=== PATIENT | female | born 1960 | race Caucasian/White ===

== ENCOUNTER 2022-01-20 22:25 | Inpatient (IN) | payer OTHER, MEDICARE ==
[2022-01-20 23:10] LABS: #Basophils 0.1 thou/uL (0.0-0.2); #Eosinphils 0.2 thou/uL (0.0-0.7); #Lymphocytes 3.6 thou/uL (1.20-3.40); #Neutrophils 5.8 thou/uL (1.40-6.50); %Basophils 0.7 % (0.0-1.0); %Eosinophils 2.1 % (0.0-10.0); %Lymphocytes 33.8 % (21.0-51.0); %Monocytes 9.4 % (0.0-10.0); %Neutrophils 54.1 % (42.0-75.0); Mean Corpuscular HGB CONC 34.3 g/dL (32.0-36.0); Mean Corpuscular Hemoglobin 29.4 pg (27.0-31.0); Mean Corpuscular Volume 85.7 fL (78.0-98.0); Mean Platelet Volume 7.5 fL (7.4-10.4); Platelet Count 318 thou/uL (130-400); RBC Distribution Width 14.5 % (11.5-14.5); Red Blood Cell (RBC) Count 3.74 mill/uL (4.20-5.40); White Blood Cell (WBC) Count 10.8 thou/uL (4.8-10.8)
[2022-01-20 23:17] LABS: INR-International Normal Ratio 1.1; Prothrombin Time 14.5 sec (12.0-14.7)
[2022-01-20 23:19] LABS: PTT 34.1 sec (22.9-36.1)
[2022-01-20 23:30] LABS: ALT (SGPT) 7 U/L (8-55); AST (SGOT) 25 U/L (5-34); Alkaline Phosphatase 158 U/L (40-110); Anion Gap 14 mmol/L (10-20); BUN (Urea Nitrogen) 15 mg/dL (9.8-20.1); Bilirubin, Total 0.2 mg/dL (0.2-1.2); Calc. Creatinine Clearance 0 mL/min (70-130); Calcium 9.1 mg/dL (7.8-10.44); Carbon Dioxide 25 mmol/L (23-31); Chloride 106 mmol/L (98-107); Globulin 3.6 g/dL (2.4-3.5); Glucose 126 mg/dL (80-115); Potassium 3.8 mmol/L (3.5-5.1); Protein, Total 7.6 g/dL (5.8-8.1); Sodium 141 mmol/L (136-145)
[2022-01-20] MEDS ORDERED: Morphine 4 MG/ML VIAL ONE (23:38)
[2022-01-20] MEDS ORDERED: Morphine 2 MG/ML VIAL ONE (23:40)
[2022-01-21] MEDS ORDERED: Morphine 2 MG/ML VIAL ONE (00:38)
[2022-01-21] MEDS ORDERED: Ondansetron PF 4 MG/2 ML Vial IVP PRN (01:54)
[2022-01-21] MEDS ORDERED: Promethazine HCl 25 MG/ML VIAL IM PRN (01:54)
[2022-01-21] MEDS ORDERED: Sodium Chloride 0.9% 1,000 ML IV SCH (02:00)
[2022-01-21] MEDS ORDERED: Morphine 4 MG/ML VIAL ONE (02:02)
[2022-01-21] MEDS ORDERED: traMADol HCl 50 MG TAB PO PRN ×2 (02:02→03:56)
[2022-01-21] MEDS ORDERED: hydrALAZINE 20 MG/ML VIAL SLOW IVP PRN (02:09)
[2022-01-21] MEDS ORDERED: Ketorolac Tromethamine 30 MG/ML VIAL IVP SCH (02:15)
[2022-01-21] MEDS: Ketorolac Tromethamine 30 MG/ML VIAL IVP SCH ×4 (04:02→23:47)
[2022-01-21] MEDS: Morphine 2 MG/ML VIAL SLOW IVP PRN ×2 (04:03→20:21)
[2022-01-21] MEDS: Acetaminophen 500 MG TAB PO SCH ×4 (04:07→23:47)
[2022-01-21 04:42] VITALS: BMI 29.9
[2022-01-21] MEDS: traMADol HCl 50 MG TAB PO SCH ×4 (06:02→23:47)
[2022-01-21] MEDS ORDERED: CEFAZOLIN 2 GM in Sodium Chloride 0.9% 100 ML IVPB SCH (07:30)
[2022-01-21] MEDS: clonazePAM 0.5 MG TAB PO SCH (08:20)
[2022-01-21] MEDS: Divalproex Sodium 250 MG (DR) TAB PO SCH ×2 (08:20→20:20)
[2022-01-21] MEDS ORDERED: Metoprolol Tartrate 25 MG TAB PO SCH (09:00)
[2022-01-21] MEDS ORDERED: fentaNYL Citrate/PF 100 MCG/2 ML SYRINGE ONE (09:35)
[2022-01-21] MEDS ORDERED: ePHEDrine 50 MG/ML VIAL ONE (09:50)
[2022-01-21] MEDS ORDERED: Ondansetron PF 4 MG/2 ML Vial ONE (09:50)
[2022-01-21] MEDS ORDERED: Dexamethasone 20 MG/5 ML VIAL ONE (09:50)
[2022-01-21] MEDS ORDERED: PROPOFOL 200 MG/20 ML VIAL ONE (09:50)
[2022-01-21] MEDS ORDERED: Rocuronium Bromide 10 MG/ML (10ML VIAL) ONE (09:50)
[2022-01-21] MEDS ORDERED: Lidocaine 1% PF 5 ML VIAL ONE (09:50)
[2022-01-21] MEDS ORDERED: Glycopyrrolate 0.2 MG/ML 5 ML SYRINGE ONE (09:50)
[2022-01-21] MEDS: Senokot S 8.6-50 MG TAB PO SCH ×2 (09:51→20:20)
[2022-01-21] MEDS: Famotidine/PF 20 mg/2ml Vial SLOW IVP SCH ×2 (09:51→20:20)
[2022-01-21] MEDS: Polyethylene Glycol 3350 17 GM Packet PO SCH (09:51)
[2022-01-21] MEDS ORDERED: Fentanyl 100 MCG/2 ML VIAL ONE (11:50)
[2022-01-21] MEDS: CEFAZOLIN 2 GM in Sodium Chloride 0.9% 100 ML IVPB SCH (17:39)
[2022-01-21] MEDS: Sodium Chloride 0.9% 1,000 ML IV SCH (17:57)
[2022-01-21] MEDS: Atorvastatin Calcium 20 MG TAB PO SCH (20:20)
[2022-01-21] MEDS: Metoprolol Tartrate 25 MG TAB PO SCH (20:20)
[2022-01-22] MEDS: CEFAZOLIN 2 GM in Sodium Chloride 0.9% 100 ML IVPB SCH ×2 (02:11→09:20)
[2022-01-22] MEDS: Sodium Chloride 0.9% 1,000 ML IV SCH (02:11)
[2022-01-22 05:54] LABS: #Lymphocytes 1.8 thou/uL (1.20-3.40); #Monocytes 1.1 thou/uL (0.11-0.59); #Neutrophils 8.5 thou/uL (1.40-6.50); %Basophils 0.1 % (0.0-1.0); %Lymphocytes 15.6 % (21.0-51.0); %Monocytes 9.8 % (0.0-10.0); %Neutrophils 74.4 % (42.0-75.0); Hemoglobin 8.8 g/dL (12.0-16.0); Mean Corpuscular HGB CONC 31.7 g/dL (32.0-36.0); Mean Corpuscular Hemoglobin 27.6 pg (27.0-31.0); Mean Platelet Volume 7.9 fL (7.4-10.4); Platelet Count 266 thou/uL (130-400); RBC Distribution Width 14.5 % (11.5-14.5); Red Blood Cell (RBC) Count 3.19 mill/uL (4.20-5.40); White Blood Cell (WBC) Count 11.4 thou/uL (4.8-10.8)
[2022-01-22] MEDS: Acetaminophen 500 MG TAB PO SCH ×3 (06:24→17:35)
[2022-01-22] MEDS: Ibuprofen 200 MG TAB PO SCH ×3 (06:24→22:22)
[2022-01-22] MEDS: traMADol HCl 50 MG TAB PO SCH ×3 (06:25→17:36)
[2022-01-22] MEDS: Divalproex Sodium 250 MG (DR) TAB PO SCH ×2 (09:05→20:20)
[2022-01-22] MEDS: clonazePAM 0.5 MG TAB PO SCH (09:06)
[2022-01-22] MEDS: Metoprolol Tartrate 25 MG TAB PO SCH ×2 (09:06→20:20)
[2022-01-22] MEDS: Senokot S 8.6-50 MG TAB PO SCH ×2 (09:07→20:20)
[2022-01-22] MEDS: Enoxaparin Sodium 40 MG/0.4 ML SYRINGE SC SCH (09:07)
[2022-01-22] MEDS: Famotidine/PF 20 mg/2ml Vial SLOW IVP SCH ×2 (09:07→20:20)
[2022-01-22] MEDS: Polyethylene Glycol 3350 17 GM Packet PO SCH (09:08)
[2022-01-22] MEDS: oxyCODONE/Acetaminophen 5 mg/325 mg Tablet PO SCH ×2 (14:15→20:21)
[2022-01-22] MEDS: Atorvastatin Calcium 20 MG TAB PO SCH (20:20)
[2022-01-23] MEDS: Acetaminophen 500 MG TAB PO SCH ×2 (00:23→06:05)
[2022-01-23] MEDS: traMADol HCl 50 MG TAB PO SCH ×5 (00:23→23:51)
[2022-01-23] MEDS: Morphine 2 MG/ML VIAL SLOW IVP PRN (02:00)
[2022-01-23 05:51] LABS: #Basophils 0.1 thou/uL (0.0-0.2); #Eosinphils 0.1 thou/uL (0.0-0.7); #Lymphocytes 2.7 thou/uL (1.20-3.40); #Monocytes 0.9 thou/uL (0.11-0.59); #Neutrophils 5.1 thou/uL (1.40-6.50); %Basophils 0.6 % (0.0-1.0); %Eosinophils 1.4 % (0.0-10.0); %Lymphocytes 30.8 % (21.0-51.0); %Monocytes 9.7 % (0.0-10.0); %Neutrophils 57.5 % (42.0-75.0); Hemoglobin 8.7 g/dL (12.0-16.0); Mean Corpuscular HGB CONC 32.3 g/dL (32.0-36.0); Mean Corpuscular Hemoglobin 28.5 pg (27.0-31.0); Mean Corpuscular Volume 88.3 fL (78.0-98.0); Mean Platelet Volume 7.9 fL (7.4-10.4); Platelet Count 263 thou/uL (130-400); RBC Distribution Width 14.7 % (11.5-14.5); Red Blood Cell (RBC) Count 3.04 mill/uL (4.20-5.40); White Blood Cell (WBC) Count 8.9 thou/uL (4.8-10.8)
[2022-01-23] MEDS: Ibuprofen 200 MG TAB PO SCH ×3 (06:05→20:53)
[2022-01-23 06:19] LABS: Anion Gap 10 mmol/L (10-20); BUN (Urea Nitrogen) 15 mg/dL (9.8-20.1); Calc. Creatinine Clearance 99 mL/min (70-130); Calcium 8.5 mg/dL (7.8-10.44); Carbon Dioxide 27 mmol/L (23-31); Chloride 108 mmol/L (98-107); Glucose 87 mg/dL (80-115); Phosphorus 3.4 mg/dL (2.3-4.7); Potassium 4.2 mmol/L (3.5-5.1); Sodium 141 mmol/L (136-145)
[2022-01-23] MEDS ORDERED: oxyCODONE/Acetaminophen 5 mg/325 mg Tablet PO PRN (08:30)
[2022-01-23] MEDS: Lisinopril 20 MG TAB PO SCH (08:49)
[2022-01-23] MEDS: Metoprolol Tartrate 25 MG TAB PO SCH ×2 (08:50→20:54)
[2022-01-23] MEDS: Famotidine 20 MG TAB PO SCH ×2 (08:50→20:54)
[2022-01-23] MEDS: Enoxaparin Sodium 40 MG/0.4 ML SYRINGE SC SCH (08:50)
[2022-01-23] MEDS: Senokot S 8.6-50 MG TAB PO SCH ×2 (08:50→20:54)
[2022-01-23] MEDS: Divalproex Sodium 250 MG (DR) TAB PO SCH ×2 (08:50→21:05)
[2022-01-23] MEDS: clonazePAM 0.5 MG TAB PO SCH (08:50)
[2022-01-23] MEDS: Polyethylene Glycol 3350 17 GM Packet PO SCH (08:51)
[2022-01-23] MEDS ORDERED: Acetaminophen 325 MG TAB PO SCH (12:00)
[2022-01-23] MEDS: oxyCODONE/Acetaminophen 5 mg/325 mg Tablet PO PRN ×2 (12:01→20:56)
[2022-01-23] MEDS: Atorvastatin Calcium 20 MG TAB PO SCH (20:54)
[2022-01-24] MEDS: Ibuprofen 200 MG TAB PO SCH ×3 (05:40→22:02)
[2022-01-24] MEDS: traMADol HCl 50 MG TAB PO SCH ×4 (05:40→23:21)
[2022-01-24] MEDS: Enoxaparin Sodium 40 MG/0.4 ML SYRINGE SC SCH (10:24)
[2022-01-24] MEDS: Metoprolol Tartrate 25 MG TAB PO SCH ×2 (10:24→20:26)
[2022-01-24] MEDS: Divalproex Sodium 250 MG (DR) TAB PO SCH ×2 (10:24→20:21)
[2022-01-24] MEDS: Polyethylene Glycol 3350 17 GM Packet PO SCH (10:24)
[2022-01-24] MEDS: clonazePAM 0.5 MG TAB PO SCH (10:25)
[2022-01-24] MEDS: Famotidine 20 MG TAB PO SCH ×2 (10:25→20:20)
[2022-01-24] MEDS: Lisinopril 20 MG TAB PO SCH (10:25)
[2022-01-24] MEDS: Senokot S 8.6-50 MG TAB PO SCH ×2 (10:25→22:01)
[2022-01-24] MEDS: oxyCODONE/Acetaminophen 5 mg/325 mg Tablet PO PRN ×2 (10:32→20:26)
[2022-01-24] MEDS: Atorvastatin Calcium 20 MG TAB PO SCH (20:21)
[2022-01-25] MEDS: Ibuprofen 200 MG TAB PO SCH ×2 (05:46→13:50)
[2022-01-25] MEDS: traMADol HCl 50 MG TAB PO SCH ×2 (05:46→12:26)
[2022-01-25] MEDS: Divalproex Sodium 250 MG (DR) TAB PO SCH (09:20)
[2022-01-25] MEDS: oxyCODONE/Acetaminophen 5 mg/325 mg Tablet PO PRN (09:21)
[2022-01-25] MEDS: clonazePAM 0.5 MG TAB PO SCH (09:22)
[2022-01-25] MEDS: Metoprolol Tartrate 25 MG TAB PO SCH (09:22)
[2022-01-25] MEDS: Lisinopril 20 MG TAB PO SCH (09:22)
[2022-01-25] MEDS: Senokot S 8.6-50 MG TAB PO SCH (09:22)
[2022-01-25] MEDS: Famotidine 20 MG TAB PO SCH (09:22)
[2022-01-25] MEDS: Enoxaparin Sodium 40 MG/0.4 ML SYRINGE SC SCH (09:23)
[2022-01-25] MEDS: Polyethylene Glycol 3350 17 GM Packet PO SCH (09:31)
[2022-01-25 12:15] VITALS: BP 136/79; TEMP 98.9
== END 2022-01-25 14:40 | DRG 493 ==
LOC: ERS 22:25 → SURG B 01-21 01:54
PROVIDERS: ADMIT Surgery; ATTEND Surgery
PROC: 0QSG06Z Reposition Right Tibia with Intramedullary Internal Fixation Device, Open Approach (ICD-10-PCS; principal; 2022-01-21)
DX: S82.241A Displaced spiral fracture of shaft of right tibia, initial encounter for closed fracture (principal); D62 Acute posthemorrhagic anemia; Z20.822 Contact with and (suspected) exposure to COVID-19; S82.831A Other fracture of upper and lower end of right fibula, initial encounter for closed fracture; I10 Essential (primary) hypertension; E78.5 Hyperlipidemia, unspecified; F41.9 Anxiety disorder, unspecified; G89.29 Other chronic pain; J44.9 Chronic obstructive pulmonary disease, unspecified; W01.0XXA Fall on same level from slipping, tripping and stumbling without subsequent striking against object, initial encounter; K59.00 Constipation, unspecified; Z79.899 Other long term (current) drug therapy; Z79.82 Long term (current) use of aspirin
CPT/HCPCS: 29405; 36415; 71045; 72170; 76000; 80048; 80053; 83735; 84100; 85025; 85610; 85730; 86850; 86900; 86901; 94640; 96374; 96376; C1713; J0690; J1100; J1650; J1885; J2270; J2405; J2704; J3010; J3490; J7050; J7620; S0028; U0003; U0005